=== PATIENT | female | born 1945 | race Caucasian/White ===

== ENCOUNTER 2017-01-23 00:27 | Emergency (ER) | payer OTHER ==
[~2017-01-23] VITALS: Ht 157.5 cm; Wt 111.8 kg
[~2017-01-23 00:27] MED LIST: BACT800T5 PO; KEPP1000 PO; LOSA25TA31 PO; LOVA20TA PO; ONDA4 PO; POTA-243 PO; PROT40TA PO
[2017-01-23 00:45] VITALS: BP 133/79; PULSE 77; RESP 22; TEMP 98.9; O2SAT 99
[2017-01-23] MEDS ORDERED: SODIUM CHLOR 0.9% 1000 ML INJ 1,000 ML IV SCH (02:13)
[2017-01-23] MEDS ORDERED: diphenhydrAMINE HCL 50 MG/ML VIAL IVP ONE (02:15)
[2017-01-23] MEDS ORDERED: EPINEPHrine HCL (1:1000) 1 MG/ML VIAL IM ONE (02:15)
[2017-01-23] MEDS ORDERED: SODIUM CHLORIDE 0.9% FLUSH 5 ML FLUSH IVF PRN (02:15)
[2017-01-23] MEDS ORDERED: LORazepam 2 MG/ML VIAL IV PUSH ONE (02:15)
[2017-01-23] MEDS ORDERED: methylPREDNISolone SOD SUCC 125 MG/2 ML VIAL IVP ONE (02:15)
[2017-01-23 02:50] VITALS: BP 104/58; PULSE 84; RESP 18; O2SAT 98
[2017-01-23] MEDS ORDERED: POTA10CA PO (03:02)
[2017-01-23] MEDS ORDERED: ECHI400C2 PO (03:02)
[2017-01-23] MEDS ORDERED: LOSA25TA PO (03:02)
[2017-01-23] MEDS ORDERED: CLAR10CA3 PO (03:02)
[2017-01-23] MEDS ORDERED: KEPP10002 PO (03:02)
[2017-01-23] MEDS ORDERED: CYAN500S SL (03:02)
[2017-01-23] MEDS ORDERED: ATOR20TA15 PO (03:02)
[2017-01-23 03:07] VITALS: BP 120/55; PULSE 83; RESP 16; O2SAT 97
[2017-01-23] MEDS ORDERED: PRED20 PO (03:31)
[2017-01-23] MEDS ORDERED: HYDR-3133 PO (03:31)
--- NOTE | 2017-01-23 03:31 | PD ---
HPI Chief Complaint: Allergic/Adverse Reaction Time Seen by Provider: 02:06 Travel History International Travel<30 days: No Contact w/Intl Traveler<30days: No Traveled to known affect area: No History of Present Illness HPI The patient 71 years old. She arrives with generalized erythematous rash. She received iodinated contrast for head CTA performed at [facility], which was normal. She has a history of aneurysms. She reports that anytime she lies on hospital bed sheets she develops a rash like she has today which is basically erythema blanching around head to toe. Somewhat itchy. She has no oropharyngeal pain or dyspnea/pulmonary complaint. No GI complaint. She does report some pain fairly prominent in the region of the left wrist when IV was placed. She was seen here about 2 years ago for essentially the same complaint and had an excellent response to Atarax and prednisone. PFSH Past Medical History Arthritis: Yes Asthma: No Atrial Fibrillation: Yes Autoimmune Disease: No Anxiety: No Depression: No Heart Rhythm Problems: Yes (A-Fib and irregular heart beat) Cancer: No Cardiovascular Problems: Yes (hx of a fib) High Cholesterol: Yes Chemotherapy: No Chest Pain: No Congestive Heart Failure: No COPD: No Cerebrovascular Accident: Yes (1996: ANEURYSM WITH CLIP, 2013: ANEURYSM WITH SHUNT) Diabetes: No Endocrine: No Gastrointestinal Disorders: Yes (reflux ) GERD: Yes Genitourinary: No Headaches: Yes Hepatitis: No Hiatal Hernia: Yes Hypertension: Yes Immune Disorder: No Implanted Vascular Access Dvce: Yes Kidney Stones: No Musculoskeletal: Yes (arthritis) Neurologic: Yes (hx of seizures) Psychiatric: No Reproductive: No Respiratory: Yes (sleep apnea) Immunizations Current: Yes Migraines: No Radiation Therapy: No Renal Failure: No Seizures: Yes Sickle Cell Disease: No Sleep Apnea: Yes Thyroid Disease: No Ulcer: No Tetanus Vaccination: > 5 Years Influenza Vaccination: Yes ?: Not Menopausal: Yes : 1 Para: 1 Past Surgical History Abdominal Surgery: Yes (hiatel hernia repair) AICD: No Arteriovenous Shunt: No Body Medical Devices: shunt placement on the brain Cardiac Surgery: No Ear Surgery: No Endocrine Surgery: No Eye Surgery: Yes (larissa cataract removal) Genitourinary Surgery: No Gynecologic Surgery: Yes (LEFT BREAST BIOPSY: 01/19/17) Insulin Pump: No Joint Replacement: Yes (BILATERAL KNEES) Neurologic Surgery: Yes (repair of brain aneurysm x2 with shunt placement) Oral Surgery: No Pacemaker: No Thoracic Surgery: No Other Surgery: Yes (Bilateral knee replacements, Stomach reposition with mesh, cateracts) Social History Alcohol Use: Yes (RARE) Tobacco Use: No Substance Use: No Allergies-Medications (Allergen,Severity, Reaction): Coded Allergies: Codeine (Verified Allergy, Severe, Rash, 01/23/17) Dilantin (Verified Allergy, Severe, Rash, 01/23/17) Phenobarbital (Verified Allergy, Severe, Rash, 01/23/17) Tegretol (Verified Allergy, Severe, REDNESS, RASH, 01/23/17) Valproic Acid (Verified Allergy, Severe, 01/23/17) red rash Uncoded Allergies: LAUNDRY DETERGENT (Allergy, Severe, Rash, 07/11/12) red dye (Allergy, Severe, rash, 01/15/15) Reported Meds & Prescriptions Reported Meds & Active Scripts Active Reported Echinacea 400 Mg Cap 1 Cap PO DAILY B-12 (Cyanocobalamin) 500 Mcg Subl 500 Mcg SL DAILY Atorvastatin (Atorvastatin Calcium) 20 Mg Tab 20 Mg PO DAILY Claritin (Loratadine) 10 Mg Cap 10 Mg PO DAILY Potassium Chloride ER (Potassium Chloride) 10 Meq Cap 10 Meq PO BID Losartan (Losartan Potassium) 25 Mg Tab 25 Mg PO DAILY Keppra (Levetiracetam) 1,000 Mg Tab 1,000 Mg PO BID Review of Systems Except as stated in HPI: all other systems reviewed are Neg Physical Exam Narrative GENERAL: pleasant 71-year-old female no acute distress SKIN: Blanching erythematous rash around the face through the trunk and extremities with minimal urticarial lesions about the lower thighs. The oropharynx is patent without no ulceration or evidence of a Gore-Mitchel/ TENs type syndrome. HEAD: Atraumatic. Normocephalic. EYES: Pupils equal and round. No scleral icterus. No injection or drainage. ENT: No nasal bleeding or discharge. Mucous membranes pink and moist. NECK: Trachea midline. No JVD. CARDIOVASCULAR: Regular rate and rhythm. No murmur appreciated. RESPIRATORY: No accessory muscle use. Clear to auscultation. Breath sounds equal bilaterally. GASTROINTESTINAL: Abdomen soft, non-tender, nondistended. Hepatic and splenic margins not palpable. MUSCULOSKELETAL: No obvious deformities. No clubbing. No cyanosis. No edema. NEUROLOGICAL: Awake and alert. No obvious cranial nerve deficits. Motor grossly within normal limits. Normal speech. PSYCHIATRIC: Appropriate mood and affect; insight and judgment normal. Data Data Last Documented VS Vital Signs Date Time Temp Pulse Resp B/P Pulse Ox O2 Delivery O2 Flow Rate FiO2 01/23/17 03:07 83 16 120/55 97 Room Air 01/23/17 00:45 98.9 Vital signs reviewed Orders Ecg Monitoring (01/23/17 02:13) Iv Access Insert/Monitor (01/23/17 02:13) Oximetry (01/23/17 02:13) Diphenhydramine Inj (Benadryl Inj) (01/23/17 02:15) Methylprednisolone So Succ Inj (Solumedr (01/23/17 02:15) Sodium Chlor 0.9% 1000 Ml Inj (Ns 1000 M (01/23/17 02:13) Sodium Chloride 0.9% Flush (Ns Flush) (01/23/17 02:15) Epinephrine (1:1000) Inj (Adrenalin (1:1 (01/23/17 02:15) Lorazepam Inj (Ativan Inj) (01/23/17 02:15) MDM Medical Decision Making Medical Screen Exam Complete: Yes Emergency Medical Condition: Yes Medical Record Reviewed: Yes Differential Diagnosis Anaphylaxis, Gore-Mitchel's, TENS, urticaria Narrative Course Epinephrine in Benadryl Pepcid prednisone IV fluids given. Patient reassessed at about 325 and the rash has improved significantly. Patient reports feeling better. Sent home with scripts as below. Return precautions discussed. Patient ready for discharge. Diagnosis Primary Impression: Rash Referrals: Primary Care Physician 2 days Additional Instructions: You have a choice when it comes to health care, and we are glad that you chose [facility]. Hopefully, we have met your expectations on today's visit. You are welcome to return to [facility] at any time, as we are committed to meeting the health care needs of our community. Med/Other Pt SpecificInfo: Prescription(s) given Scripts Hydroxyzine HCl 25 Mg Tab25 Mg PO QID PRN (ITCHING AND/OR RASH) #15 TAB Ref 0 Prov:Tanner Strong MD 01/23/17 Prednisone 20 Mg Tab40 Mg PO DAILY 4 Days Ref 0 Take 40 mg (2 tablets) daily for 5 days Prov:Tanner Strong MD 01/23/17 Disposition: 01 DISCHARGE HOME Condition: Stable Tanner Strong MD Jan 23, 2017 03:31
[2017-01-23 04:03] VITALS: BP 121/62; PULSE 82; RESP 16; O2SAT 97
== END 2017-01-23 04:13 | disposition home or self-care (01) ==
LOC: PHED 00:27 → PHEFT 04:13
DX: I48.91 Unspecified atrial fibrillation (principal); E78.00 Pure hypercholesterolemia, unspecified; I10 Essential (primary) hypertension; G47.30 Sleep apnea, unspecified; R21 Rash and other nonspecific skin eruption
CPT/HCPCS: 96361; 96372; 96374; 96375; 99282; J0171; J1200; J2060; J2930; J7030

== ENCOUNTER → 2017-03-06 | Day surgery (SDC) | payer OTHER ==
[~2017-03-06] MED LIST changes: +ATOR20TA15 PO; -BACT800T5 PO; +BUPIVACAINE/EPINEPHRINE 0.5% 50 ML VIAL ONE; +CLAR10CA3 PO; +CYAN500S SL; +ECHI400C2 PO; +HYDR-3133 PO; +ISOSULFAN BLUE 50 MG/5 ML VIAL SQ ONE; -KEPP1000 PO; +KEPP10002 PO; +LACTATED RINGER'S 1000 ML INJ 1,000 ML ONE; +LIDOCAINE 1%/EPINEPHrine 1:100,000 SOLN 50 ML VIAL ONE; +LOSA25TA PO; -LOSA25TA31 PO; -LOVA20TA PO; -ONDA4 PO; +ONDANSETRON HCL 4 MG/2 ML VIAL IV PUSH ONE; -POTA-243 PO; +POTA10CA PO; +PRED20 PO; +PROPOFOL 200 MG/20 ML AMP IV ONE; -PROT40TA PO; +ceFAZolin INJ 1,000 MG VIAL ONE
--- NOTE | 2017-03-06 20:28 | TN ---
cc: FÉLIX LANG M.D. DATE OF SURGERY 03/06/2017 PREOPERATIVE DIAGNOSIS Left breast cancer, left upper outer quadrant. POSTOPERATIVE DIAGNOSIS Left breast cancer. PROCEDURE 1. Injection of Lymphazurin blue dye for identification and lymphatic mapping. 2. Identification of one sentinel node by lymphatic mapping. 3. Needle-localized excisional quadrantectomy upper outer quadrant left breast. ANESTHESIA General. SURGEON Dr. Lang. INDICATION This is a pleasant 71-year-old female who was found to have a malignancy in the left breast in the upper outer quadrant. Plans were made for breast conservation. PROCEDURE The patient was taken to the operating room and placed in the supine position. After anesthesia her left breast is prepped with Betadine. Prior to doing this we did inject 6 mL of Lymphazurin blue dye in the upper outer quadrant with a guidewire that had been previously placed by the radiologist. First a time-out is done. After prepping and draping we make a curvilinear incision in the axillary region. A hot spot was identified. We dissect down into the axillary space identifying a slightly enlarged, soft, lymph node. It does not stain blue with an ex vivo count of 3035. No other hot spot is identified. There is no other lymphadenopathy identified except for a small piece of tissue that was removed coursing to identify the lymphatic tissue. This is labeled as axillary tissue. After this is done we irrigate. Hemostasis assured. We close the deep layer with 3-0 Vicryl and skin is closed with 4-0 Vicryl. We then turned to the direction to the upper outer quadrant of the left breast. A curvilinear incision is made encompassing the needle track jarrett. We dissect down around the guidewire circumferentially. Dr. Garcia had stated the clip had migrated and it was somewhat anterior and lateral to the guidewire and the density that was seen on the mammography and imaging. Taking this into account we dissect down circumferentially taking a little bit more on the anterior lateral plane. It appears that the tip of the guidewire is coursing into the pectoralis muscle. This is carefully teased away using electrocautery device. After removing the specimen we then jarrett it superiorly with a short stitch and a long stitch placed laterally. On further investigation it appears there is some thickened tissue on the pectoralis muscle on the medial and lateral edge. For this reason a medial edge is removed removing the tissue circumferentially from the medial aspect of the first specimen. This specimen is labeled superiorly with a short stitch and a long stitch placed laterally. The lateral edge of the original specimen is then excised as well marking superiorly with a short stitch and a long stitch placed laterally. No other gross abnormalities palpated. The area in question, Dr. Garcia states the area in question is close to the margin but I told him we took about 3 cm extra tissue on the medial edge and 4 cm on the lateral edge and hopefully this will obtain clear margins as we have taken out the upper outer quadrant of the left breast with the quadrantectomy down to the pectoralis muscle. This is then irrigated. Hemostasis assured with electrocautery device. We then do an oncoplastic closure by closing the deep tissue with 3-0 Vicryl and skin with a 4-0 Vicryl. Steri-Strips applied. Sterile bandage applied. The patient tolerated the procedure well and had no immediate postop complications. Félix Lang MD JDB/KK /5:37 PM /8:11 PM
== END | disposition home or self-care (01) ==
LOC: ESDC 06:17
PROVIDERS: ATTEND Surgery
DX: C50.412 Malignant neoplasm of upper-outer quadrant of left female breast (principal)
CPT/HCPCS: 00400; 01610; 19125; 38525; 38792; 88307; J0690; J2405; J3010; J7120; Q9968; 88305